=== PATIENT | female | born 1990 | race Caucasian/White ===

== ENCOUNTER → 2019-04-23 16:05 | Outpatient (CLI) | payer OTHER, SELFPAY ==
[2019-04-23 16:52] LABS: Add Manual Diff / Slide Review NO; Basophils Absolute Auto 0 /uL (0-100); Basophils Percent Auto 0.4 % (0-2); Eosinophils Absolute Auto 100 /uL (0-450); Eosinophils Percent Auto 1.6 % (2-4); Hematocrit 42.3 % (36-46); Hemoglobin 14.5 g/dL (12.0-16.0); Lymphocytes Absolute Auto 1600 /uL (1100-4500); Lymphocytes Percent Auto 18.7 % (25-40); Mean Corpuscular HGB Conc 34.3 % (30-36); Mean Corpuscular Hemoglobin 32.3 PG (26-34); Mean Corpuscular Volume 94.4 fL (80-100); Monocytes Absolute Auto 900 /uL (0-900); Monocytes Percent Auto 10.4 % (3-14); Neutrophils Absolute Auto 6100 /uL (1500-7000); Neutrophils Percent Auto 68.9 % (50-75); Platelet Count 284 X10^3/uL (150-400); Red Blood Cell Count 4.48 X10^6/uL (4.0-5.2); Red Cell Distribution Width 12.6 % (11.6-14.8); White Blood Cell Count 8.8 X10^3/uL (4.5-11.0)
[2019-04-23 17:39] LABS: Hepatitis B Surface Antigen NEGATIVE s/c (NEGATIVE); Rubella Antibody IgG 46.8 IU/mL (>15)
[2019-04-23 17:54] LABS: HIV 1 & 2 Ab/Ag 4th Gen Combo NEGATIVE (NEGATIVE); Hep C Virus Ab w/Reflex Quant NEGATIVE s/c (NEGATIVE)
[2019-04-23 17:59] LABS: Appearance Urine UA CLEAR; Bilirubin Urine UA NEGATIVE (NEGATIVE); Color Urine UA YELLOW; Glucose Urine UA NEGATIVE (Negative); Ketones Urine UA TRACE (NEGATIVE); Leukocyte Esterase Urine UA NEGATIVE (NEGATIVE); Nitrite Urine UA NEGATIVE (Negative); Occult Blood Urine UA NEGATIVE (Negative); Protein Urine UA NEGATIVE (Negative); Specific Gravity Urine UA 1.025 (1.000-1.035); Urobilinogen Urine UA 0.2 E.U./dL (0.2)
[2019-04-23 18:01] LABS: pH Urine UA 5.5 (4.5-8.0)
[2019-04-23 19:12] LABS: Urine N gonorrhoeae NOT DETECTED
[2019-04-23 19:22] LABS: Urine Chlamydia NOT DETECTED
[2019-04-27 16:03] LABS: RPR Screen NONREACTIVE
[2019-04-27 17:44] LABS: Varicella IgG Antibody < 135.00 Index (< 135.00)
== END ==
PROVIDERS: Visit Provider Specialist
DX: Z34.81 Encounter for supervision of other normal pregnancy, first trimester (principal)
CPT/HCPCS: 36415; 80055; 81003; 86787; 86803; 86850; 86900; 86901; 87086; 87389; 87491; 87591

== ENCOUNTER → 2019-06-18 16:46 | Outpatient (CLI) | payer OTHER, SELFPAY ==
[2019-06-30 10:42] LABS: AFP, Serum 186.8 ng/mL; Cigarette Smoker NO; Donated Egg N; Donor Egg Age NOT GIVEN; Estriol, Free 1.36 ng/mL; Inhibin A, Dimeric 153 pg/mL; Maternal Ethnicity Caucasian; Maternal Weight 166 lbs; Number of Fetuses 1; Previous Pregnancy Down Syndro N; hCG, MoM 0.56
== END ==
PROVIDERS: PCP Physician Assistant; Visit Provider Specialist
DX: Z34.82 Encounter for supervision of other normal pregnancy, second trimester (principal); Z3A.17 17 weeks gestation of pregnancy
CPT/HCPCS: 36415; 82105; 82677; 84702; 86336

== ENCOUNTER 2019-08-05 11:52 | Observation (INO) | payer OTHER, SELFPAY ==
--- NOTE | 2019-08-05 13:04 | DI.US.S_ITS ---
PROCEDURE: US OB LIMITED INDICATIONS: CERVICAL LENGTH OUTSIDE/PRIOR DATING DATA: Last menstrual period (LMP): 02/19/19. LMP-based estimated date of delivery (REGIS): 11/26/19. First dating scan (date and location): 04/23/19. Estimated date of delivery (REGIS) from first dating scan: 11/24/19. TECHNIQUE: Real-time scanning was performed of the fetus, with image documentation. Endovaginal scanning: For better visualization of cervical length COMPARISON: [facility], US, US OB <= 14 WEEKS FETUS, 05/21/2019, 11:18. FINDINGS: A single living intrauterine gestation is present. Presentation: Transverse with head to maternal right. Placenta: Placental position is posterior, without previa. Amniotic fluid index: 10.5 cm, normal range is 5-24 cm. heart rate: 137 beats per minute. Maternal cervical canal: The cervix is closed. Endovaginal imaging of the cervix demonstrates the average cervical length to be 2.6 cm long. With external pressure, cervical length can be decreased 2.2 cm. No evidence of funneling of the cervix. Estimated gestational age from initial scan: 24 weeks, one day IMPRESSION: 1. Single living intrauterine in transverse presentation. 2. Cervical length at the level and is normal at rest. External pressure can cause shortening of the cervix. 3. No evidence of cervical funneling or endocervical fluid. 4. Normal amniotic fluid volume. Dictated by: Iveth Ybarra M.D. on 08/05/2019 at 13:59 Approved by: Iveth Ybarra M.D. on 08/05/2019 at 14:13
[2019-08-05] MEDS: NIFEdipine 30 MG TAB ER PO (14:15)
== END 2019-08-05 14:25 | disposition home or self-care (01) ==
PROVIDERS: Admitting Provider Specialist; PCP Physician Assistant; Visit Provider Specialist
DX: O47.02 False labor before 37 completed weeks of gestation, second trimester (principal); O36.5920 Maternal care for other known or suspected poor fetal growth, second trimester, not applicable or unspecified; Z3A.23 23 weeks gestation of pregnancy
CPT/HCPCS: 59025; 76815; 76817; G0378; G0379

== ENCOUNTER → 2019-08-09 11:14 | Outpatient (CLI) | payer OTHER, SELFPAY ==
[2019-08-09 13:40] LABS: Hematocrit 42.3 % (36-46); Hemoglobin 14.5 g/dL (12.0-16.0)
[2019-08-09 14:13] LABS: GTT (PREG) 1 Hour PP 50gm Dose 132 mg/dL (76-139)
== END ==
PROVIDERS: PCP Physician Assistant; Visit Provider Specialist
DX: Z34.82 Encounter for supervision of other normal pregnancy, second trimester (principal)
CPT/HCPCS: 36415; 82950; 85014; 85018

== ENCOUNTER 2019-09-08 14:24 | Outpatient (CLI) | payer OTHER, SELFPAY ==
--- NOTE | 2019-09-08 17:29 | PM.OBTRLD ---
Visit Information Visit Information Date of evaluation: 09/08/19 Primary OB Provider: Claudine Purdy Reason for Evaluation: Yes non-stress test non-stress test reason: other (IUGR) [facility] Medical History (Updated 09/08/19 @ 14:25 by Claudine Purdy MD) Elevated liver function tests (Acute) Surgical History (Updated 04/20/19 @ 21:45 by Linda Vallejo) H/O LEEP (Resolved ~2019) Family History (Updated 04/20/19 @ 21:48 by Linda Vallejo) Father Mental health problem Mother Mental health problem Brother Mental health problem Brother Mental health problem Sister Cancer Grandmother Cancer Grandmother Cancer Social History Smoking Status: Never smoker Evaluation Evaluation Baseline heart rate: 140 Variability: Moderate (11-25) monitor accelerations: Present monitor decelerations: Absent Contraction Frequency (minutes): 0 Diagnosis, Plan/Disposition Final Diagnosis (1) Symmetric IUGR complicating , antepartum: Current Visit: No Status: Acute Plan/Disposition Plan: Discussed the patient with the [facility] perinatology. She is going to go down to be evaluated at the [facility] labor and delivery tonight for follow-up ultrasound and umbilical artery check. OB Disposition: other (Patient does not need to be transferred by ambulance but will go down to [facility])
== END 2019-09-08 16:20 | disposition home or self-care (01) ==
LOC: OB 09-09 09:49
PROVIDERS: PCP Physician Assistant; Visit Provider Specialist
DX: O36.5930 Maternal care for other known or suspected poor fetal growth, third trimester, not applicable or unspecified (principal); Z3A.29 29 weeks gestation of pregnancy
CPT/HCPCS: 59025; 59050; G0378; G0379

== ENCOUNTER 2020-02-16 15:20 | Day surgery (SDC) | payer OTHER, MEDICAID, SELFPAY ==
[2020-02-16] VITALS (10 sets, daily range): BP systolic 108–131; BP diastolic 75–90; PULSE 63–104; RESP 14–27; TEMP 36.5–36.9; O2SAT 98–100
--- NOTE | 2020-02-16 | PATH_ITS ---
[facility] Accession Number: [id number] . 01 Material submitted: . gallbladder - GALLBLADDER AND CONTENTS . 01 Clinical history: . STOMACH PAIN INFECTION OF GALLBLADDER PER DR Jorge 02 Diagnosis: Gallbladder and Contents, Cholecystectomy: Chronic cholecystitis with cholelithiasis. Negative for dysplasia and malignancy. MRV 02/21/2020 1147 Local . 02 Electronically signed: . Rachana Aragon MD, Pathologist NPI- [id number] . 01 Gross description: . Specimen A is received in formalin, labeled with patient identification and gallbladder and contents. It consists of an intact gallbladder measuring 7.2 cm in length and up to 2.0 cm in diameter. The staple at the cystic duct margin is removed and the tissue underneath is inked blue. The cystic duct is 0.3 cm in diameter. The serosa is pink-mariscal and dull with white exudate. The hepatic surface is yellow-mariscal shaggy and cauterized. Opening the specimen reveals brown to yellow-mariscal and velvety mucosa with yellow excrescence. Multiple yellow-mariscal and irregular shaped calculi are present measuring 3.2 x 2.7 x 0.4 cm in aggregate. Multiple small fragments of calculi are present at the neck. The wall thickness is 0.2 cm. No lymph node candidate is present. Flatbed Driver sections are submitted in two cassettes. . Summary of sections: A1 - cystic duct margin, shave, one piece. A2 - traveling sales representative sections of gallbladder, three pieces. ([id number]) /MRV 02/18/2020 1042 Local . 02 Pathologist provided ICD-10: K80.60 . 02 CPT . 570052 Performed at: [address] [facility], [facility] [place] [id number] MD Chato Madera MD Phone: [phone] Performed at: 02 [facility] [address] [place] [id number] MD Rachana Aragon MD Phone: [phone]
--- NOTE | 2020-02-16 15:29 | ED.ABDPAIN ---
HPI - Abdominal Pain General Chief Complaint: Abdominal Pain Stated Complaint: STOMACH PAIN INFECTION OF GALLBLADDER PER DR Time Seen by Provider: 02/16/20 15:29 Source: patient Mode of arrival: Ambulatory Limitations: no limitations History of Present Illness HPI narrative: 29-year-old female nonsmoker with noncontributory medical history presents with the chief complaint of severe epigastric pain and radiation to her back which is notably worse after she eats. She has had what her doctor thinks is gallbladder problems off and on since she delivered her son in August. The patient was seen by her primary care provider this morning and had a bedside ultrasound suggesting a thickened gallbladder wall and the patient was sent here for further evaluation. She has had nausea and vomiting and, as stated above, her symptoms are significantly worse after eating. She denies any fever or chills nor jaundice. She is actively breast-feeding. She denies any change in bowel habits or urinary complications such as dysuria, frequency or urgency. Last oral intake was about 1330 today MD complaint: abdominal pain Onset (ago): hour(s) Pain Consistency: constant Location: epigastric Severity: severe Quality: stabbing and aching Radiation: back Migration to: no migration Relieving factors: nothing Exacerbating factors: eating Associated symptoms: nausea and vomiting Related Data Home Medications Medication Instructions Recorded Confirmed prenat.vits,rosalina,[id number] 1 tab PO DAILY 04/14/19 10/22/19 Allergies Allergy/AdvReac Type Severity Reaction Status Date / Time No Known Drug Allergies Allergy Verified 10/22/19 14:17 Review of Systems Constitutional Constitutional: Denies chills, Denies fatigue, Denies fever(s), Denies frequent falls, Denies lethargy and Denies weakness Eyes Eyes: Denies change in vision, Denies eye discharge, Denies irritation and Denies loss of vision ENT Ears, Nose, Mouth, and Throat: Denies change in voice, Denies dizziness, Denies neck pain, Denies sore throat and Denies throat swelling Cardiovascular Cardiovascular: Denies chest pain, Denies irregular heart rhythm, Denies lightheadedness, Denies palpitations, Denies dyspnea, Denies dyspnea on exertion and Denies orthopnea Respiratory Respiratory: Denies cough, Denies dyspnea, Denies dyspnea on exertion and Denies wheezing Gastrointestinal Gastrointestinal: Reports abdominal pain, Denies change in bowel habits, Denies diarrhea, Reports nausea and Reports vomiting Musculoskeletal Musculoskeletal: Denies neck pain and Denies numbness Integumentary/Breasts Skin/Breast: Denies pruritus, Denies erythema, Denies rash and Denies wounds Neurologic Neurologic: Denies behavioral changes, Denies confusion, Denies dizziness, Denies frequent falls, Denies loss of vision, Denies numbness and Denies weakness Psychiatric Psychiatric: Denies anxiety, Denies behavioral changes, Denies confusion, Denies depression, Denies homicidal ideation and Denies suicidal ideation Endocrine Endocrine: Denies fatigue, Denies flushing and Denies palpitations Hematologic/Lymphatic Hematologic/Lymphatic: Denies easy bruising Allergic/Immunologic Allergic/Immunologic: Denies urticaria, Denies throat swelling and Denies wheezing Patient History Medical History Elevated liver function tests (Acute) Surgical History H/O section (Acute ~08/2019) H/O LEEP (Resolved ~2018) Family History Father Mental health problem Mother Mental health problem Brother Mental health problem Brother Mental health problem Sister Cancer Grandmother Cancer Grandmother Cancer Social History Smoking Status: Never smoker Smoking Status: Never smoker Exam Narrative Exam Narrative: GENERAL: [29] year old patient appears stated age. Well-nourished, well-developed patient, in mild distress. HEAD: Atraumatic. Normocephalic. EYES: Pupils equal round and reactive. Extraocular motions intact. No scleral icterus. No injection or drainage. ENT: Nose without bleeding, purulent drainage. Throat without erythema, tonsillar hypertrophy or exudate. Airway patent. NECK: Trachea midline. Non tender CARDIOVASCULAR: Regular rate and rhythm without murmurs, gallops, or rubs. RESPIRATORY: Clear to auscultation. Breath sounds equal bilaterally. No wheezes, rales, or rhonchi. GASTROINTESTINAL: Abdomen soft, tender in epigastrum, nondistended. EXTREMITIES: No edema or joint tenderness. BACK: Nontender without deformity or crepitance. No flank tenderness. NEURO: AOx3. SKIN: No rash or erythema of visible areas Initial Vital Signs Initial Vital Signs: Vital Signs Temperature 98.5 F 02/16/20 15:24 Pulse Rate 68 02/16/20 15:24 Respiratory Rate 14 02/16/20 15:24 Blood Pressure 131/85 02/16/20 15:24 Pulse Oximetry 98 02/16/20 15:24 Course Orders Ordered: ED Orders 02/16/20 15:37 US abdomen limited Stat 02/16/20 15:43 Complete Blood Count AUTO DIFF Stat Comprehensive Metabolic Panel Stat Lipase Stat Sodium Chloride (Normal Saline 0.9%) 1,000 mls @ 150 mls/hr IV CONT HARRIET Last Admin: 02/16/20 16:12 Dose: 150 mls/hr Documented by: EMMA Discontinued Medications Piperacillin/Tazobactam/Dextrose (Zosyn) 3.375 gm in 50 mls @ 100 mls/hr IV NOW ONE Stop: 02/16/20 16:53 Last Infusion: 02/16/20 17:21 Dose: 0 mls/hr Documented by: Admin: 02/16/20 16:50 Dose: 100 mls/hr Documented by: SARAH Consultations Consultation #1: call to surgery given convincing story and US findings. He requests admission, ABX, COVID and will see her at the bedside. Vital Signs Vital signs: Vital Signs - 8 hr 02/16/20 15:24 Temperature 98.5 F Pulse Rate 68 Respiratory Rate 14 Blood Pressure 131/85 Pulse Oximetry 98 MDM - Abdominal Pain Lab Data Result diagrams: 02/16/20 15:43 02/16/20 15:43 Labs: Lab Results 02/16/20 02/16/20 Range/Units 15:43 15:43 WBC 7.4 (4.5-11.0) X10^3/uL RBC 4.40 (4.0-5.2) X10^6/uL Hgb 13.7 (12.0-16.0) g/dL Hct 40.8 (36-46) % MCV 92.7 (80-100) fL MCH 31.0 (26-34) PG MCHC 33.5 (30-36) % RDW 13.0 (11.6-14.8) % Plt Count 254 (150-400) X10^3/uL Neut % (Auto) 56.5 (50-75) % Lymph % (Auto) 29.8 (25-40) % Star[place] % (Auto) 9.2 (3-14) % Eos % (Auto) 3.9 (2-4) % Baso % (Auto) 0.6 (0-2) % Neut # (Auto) 4200 (8918-3772) /uL Lymph # (Auto) 2200 (0114-3013) /uL Starke # (Auto) 700 (0-900) /uL Eos # (Auto) 300 (0-450) /uL Baso # (Auto) 0 (0-100) /uL Sodium 138 (137-145) mmol/L Potassium 4.0 (3.4-5.1) mmol/L Chloride 106 (98-107) mmol/L Carbon Dioxide 24 (22-32) mmol/L BUN 13 (7-17) mg/dL Creatinine 0.61 (0.52-1.04) mg/dL Estimated GFR > 60.0 (>60) mL/min BUN/Creatinine Ratio 21.3 (6-22) Glucose 92 (70-100) mg/dL Calcium 9.5 (8.4-10.2) mg/dL Total Bilirubin 0.3 (0.2-1.3) mg/dL AST 32 (14-36) IU/L ALT 45 H (<35) IU/L Alkaline Phosphatase 85 (38-126) U/L Total Protein 7.5 (6.3-8.2) g/dL Albumin 4.5 (3.5-5.0) g/dL Globulin 3.0 (1.7-4.1) g/dL Albumin/Globulin Ratio 1.5 (1.0-2.8) Lipase 115 (23-300) U/L Point of care testing: Urine Dip Bedside Urine Glucose Negative Bedside Urine Bilirubin - Negative Bedside Urine Ketone +/- 5 Urine Specific [place] 1.025 Bedside Urine Occult Blood - Negative Bedside Urine pH 6.0 Bedside Urine Protein - Negative Bedside Urine Urobilinogen - Negative Bedside Urine Nitrite - Negative Bedside Urine Leukocytes - Negative Esterase Imaging Data US - abdomen: Radiologist's Impression: [address] [id number] Ultrasound Report Signed Patient: Toshia Pardo GMR#: [id number] : 1990Acct:[id number] Age/Sex: 29 / FDate of Service: 02/16/20 Loc: ED Accession Number: [id number] Procedure: US abdomen limited Ordering Provider: Nj Arzola D.O. PROCEDURE: US ABDOMEN LIMITED INDICATIONS: severe epigastric pain TECHNIQUE: Real-time scanning was performed of the abdominal and retroperitoneal organs, with image documentation. COMPARISON: None. FINDINGS: Liver: Normal hepatic parenchymal echogenicity, echotexture, and contour. Gallbladder: The gallbladder is slightly contracted which greatly limits evaluation. Wall thickness is at the upper limits of normal. Sonographic Ware's sign is reported as negative. There are numerous shadowing echogenic gallstones measuring up to 7 mm (at least 10 stones are identified). Biliary ducts: No intrapelvic or extrahepatic biliary ductal dilatation. Pancreas: Visualized portions of the pancreas are sonographically normal. No pancreatic ductal dilatation. IMPRESSION: Tightly contracted gallbladder which greatly limits evaluation. Cholelithiasis with no definite sonographic findings of cholecystitis. Dictated by: Feliciano Dalal M.D. on 02/16/2020 at 16:23 Approved by: Feliciano Dalal M.D. on 02/16/2020 at 16:26 Discharge Plan Departure Patient Disposition: Admitted as Observation Clinical Impression: Cholelithiasis Qualifiers: Cholelithiasis location: gallbladder Cholecystitis presence: without cholecystitis Biliary obstruction: without biliary obstruction Qualified Code(s): K80.20 - Calculus of gallbladder without cholecystitis without obstruction Referrals: Mary Jo Hannon PA-C [Primary Care Provider] - Admit Date/Time: 02/16/20 17:14 Admit Provider: Mark Ashby
--- NOTE | 2020-02-16 15:37 | DI.US.S_ITS ---
PROCEDURE: US ABDOMEN LIMITED INDICATIONS: severe epigastric pain TECHNIQUE: Real-time scanning was performed of the abdominal and retroperitoneal organs, with image documentation. COMPARISON: None. FINDINGS: Liver: Normal hepatic parenchymal echogenicity, echotexture, and contour. Gallbladder: The gallbladder is slightly contracted which greatly limits evaluation. Wall thickness is at the upper limits of normal. Sonographic Ware's sign is reported as negative. There are numerous shadowing echogenic gallstones measuring up to 7 mm (at least 10 stones are identified). Biliary ducts: No intrapelvic or extrahepatic biliary ductal dilatation. Pancreas: Visualized portions of the pancreas are sonographically normal. No pancreatic ductal dilatation. IMPRESSION: Tightly contracted gallbladder which greatly limits evaluation. Cholelithiasis with no definite sonographic findings of cholecystitis. Dictated by: Feliciano Dalal M.D. on 02/16/2020 at 16:23 Approved by: Feliciano Dalal M.D. on 02/16/2020 at 16:26
[2020-02-16 15:50] LABS: Add Manual Diff / Slide Review NO; Basophils Absolute Auto 0 /uL (0-100); Basophils Percent Auto 0.6 % (0-2); Eosinophils Absolute Auto 300 /uL (0-450); Eosinophils Percent Auto 3.9 % (2-4); Hematocrit 40.8 % (36-46); Hemoglobin 13.7 g/dL (12.0-16.0); Lymphocytes Absolute Auto 2200 /uL (1100-4500); Lymphocytes Percent Auto 29.8 % (25-40); Mean Corpuscular HGB Conc 33.5 % (30-36); Mean Corpuscular Volume 92.7 fL (80-100); Monocytes Absolute Auto 700 /uL (0-900); Monocytes Percent Auto 9.2 % (3-14); Neutrophils Absolute Auto 4200 /uL (1500-7000); Neutrophils Percent Auto 56.5 % (50-75); Platelet Count 254 X10^3/uL (150-400); White Blood Cell Count 7.4 X10^3/uL (4.5-11.0)
[2020-02-16 16:05] LABS: Alanine Aminotransferase 45 IU/L (<35); Albumin 4.5 g/dL (3.5-5.0); Albumin Globulin Ratio 1.5 (1.0-2.8); Alkaline Phosphatase 85 U/L (38-126); Aspartate Aminotransferase 32 IU/L (14-36); BUN Creatinine Ratio 21.3 (6-22); Bilirubin Total 0.3 mg/dL (0.2-1.3); Blood Urea Nitrogen 13 mg/dL (7-17); Calcium 9.5 mg/dL (8.4-10.2); Carbon Dioxide 24 mmol/L (22-32); Chloride 106 mmol/L (98-107); Estimated Glomerular Filt Rate > 60.0 mL/min (>60); Glucose 92 mg/dL (70-100); HEMOLYSIS 19 (0-50); Lipase 115 U/L (23-300); Sodium 138 mmol/L (137-145); Total Protein 7.5 g/dL (6.3-8.2)
[2020-02-16] MEDS: SODIUM CHLORIDE 0.9% 1,000 ML 150 ML IV (16:12)
--- NOTE | 2020-02-16 16:44 | P.HP_ITS ---
History of Present Illness History of Present Illness Date Patient Seen: 02/16/20 Time Patient Seen: 21:21 Chief complaint: STOMACH PAIN INFECTION OF GALLBLADDER PER Narrative: 29-year-old female the history of biliary colic presents with acute onset of right upper quadrant pain. Pain is constant in nature unlike previous similar episodes. Pain associated with nausea no vomiting bloating. In the emergency room she underwent a CT is ultrasound the right upper quadrant which demonstrates cholelithiasis as well as mild wall thickening and positive Ware sign. Her laboratory studies including LFTs were normal. Patient History Medical History Elevated liver function tests (Acute) Surgical History H/O section (Acute ~08/2019) H/O LEEP (Resolved ~2018) Family & Social History Family History Father Mental health problem Mother Mental health problem Brother Mental health problem Brother Mental health problem Sister Cancer Grandmother Cancer Grandmother Cancer Tobacco & Substance use: Smoking Status Never smoker Meds Home Medications and Allergies Home Medications Medication Instructions Recorded Confirmed Type prenat.vits,rosalina,[id number] 1 tab PO DAILY 04/14/19 10/22/19 History Allergies Allergy/AdvReac Type Severity Reaction Status Date / Time No Known Drug Allergies Allergy Verified 10/22/19 14:17 Review of Systems Review of Systems Narrative: A 10 point review of systems is negative except as noted in the HPI Exam Vital Signs (past 8 hours): - 02/16/20 15:24 Temperature 98.5 F Pulse Rate 68 Respiratory Rate 14 Blood Pressure 131/85 Pulse Oximetry 98 Oxygen Delivery Method Room Air Narrative Exam Narrative: General-no acute distress, well nourished HEENT-moist mucous membranes, no scleral icterus Neck-supple, no lymphadenopathy Chest- non labored respirations, clear to auscultation bilaterally Cardiac-regular rate no peripheral edema Abdomen-positive Ware's sign Extremities-warm, well perfused Neurological-alert and oriented, no focal deficits Objective Labs Result Diagrams: 02/16/20 15:43 02/16/20 15:43 Labs: Laboratory Results - last 24 hr 02/16/20 02/16/20 15:43 15:43 WBC 7.4 RBC 4.40 Hgb 13.7 Hct 40.8 MCV 92.7 MCH 31.0 MCHC 33.5 RDW 13.0 Plt Count 254 Neut % (Auto) 56.5 Lymph % (Auto) 29.8 [place] % (Auto) 9.2 Eos % (Auto) 3.9 Baso % (Auto) 0.6 Neut # (Auto) 4200 Lymph # (Auto) 2200 [place] # (Auto) 700 Eos # (Auto) 300 Baso # (Auto) 0 Sodium 138 Potassium 4.0 Chloride 106 Carbon Dioxide 24 BUN 13 Creatinine 0.61 Estimated GFR > 60.0 BUN/Creatinine Ratio 21.3 Glucose 92 Calcium 9.5 Total Bilirubin 0.3 AST 32 ALT 45 H Alkaline Phosphatase 85 Total Protein 7.5 Albumin 4.5 Globulin 3.0 Albumin/Globulin Ratio 1.5 Lipase 115 Assessment & Plan Assessment and plan (1) Acute cholecystitis: Status: Acute Assessment & Plan narrative: 29-year-old female with acute cholecystitis. She has positive Ware sign on exam reviewed her ultrasound which demonstrates cholelithiasis and acute cholecystitis. Laboratory studies are normal including liver function tests. Recommend that we proceed to the operating room for laparoscopic cholecystectomy possible open. Discussed the technical nature of the procedure the operative risks of bleeding infection bile duct injury damage to surrounding structures conversion to open. Questions have been answered she is in agreement with this plan.
[2020-02-16] MEDS: PIPERACILLIN-TAZO 3.375 GM/50 ML FROZ.PIGGY IV (16:50)
[2020-02-16 17:34] LABS: COVID19 -Nasal RAPID Negative (Negative)
[2020-02-16] MEDS: LACTATED RINGERS 1,000 ML 42 ML IV (19:30)
[2020-02-16] MEDS: ACETAMINOPHEN IV 1,000 MG/100 ML VIAL 400 MG IV (20:10)
--- NOTE | 2020-02-16 20:14 | SUR.OPER ---
Supine on padded OR bed, head on pillow, right arm secured on padded arm boards at <90 degrees abduction, left arm is tucked and wrapped in gel, legs uncrossed, safety belt at thigh, tape over blanket over lower legs, foot board.
[2020-02-16] MEDS: BUPIVACAINE 0.25% (PF) VIAL 30 ML INJ (20:20)
[2020-02-16] MEDS: HYDROMORPHONE 2 MG INJ IV (21:18)
[2020-02-16] MEDS: ONDANSETRON 4 MG/2 ML INJ IV ×2 (21:19→21:36)
--- NOTE | 2020-02-16 21:24 | P.OP_ITS ---
Operative Date/Time/Diagnoses Date of procedure: 02/16/20 Time of procedure: 21:24 Pre-op diagnosis: Acute cholecystitis Post-op diagnosis: same Procedure & Clinicians Procedure: Laparoscopic cholecystectomy Same procedure as scheduled: Yes Indications: 29-year-old female history of biliary colic presents with acute cholecystitis. Surgeon: Mark Ashby Anesthesia Type: General Operative Notes Findings: Acute on chronic cholecystitis. Critical view safety Specimen(s): other (Gallbladder) Estimated Blood Loss (mL): 20 Procedure in detail: The patient was placed supine on the table and bilateral lower extremity compression devices were applied. Anesthesia was induced they were intubated with an endotracheal tube and received 2g of Ancef. A time-out was performed. They were prepped and draped in sterile fashion. An infraumbilical incision was made, the umbilical stalk was elevated and the fascia was sharply incised entering the abdomen atraumatically. A blunt tip 12mm balloon trocar was then inserted, pneumoperitoneum was established and inspection of the abdomen demonstrated no evidence of injury. They were placed head up and right side up and then a 11 mm port was placed high in the epigastrium and two 5mm in the right upper quadrant. The gallbladder appeared acutely inflamed there were also some omental adhesions to the gallbladder consistent with acute on chronic cholecystitis. The gallbladder was grasped by the fundus and retracted over the liver and retracted laterally by the infundibulum. Using electrocautery the lateral plane between the gallbladder and the liver was opened towards the fundus. The gallbladder was then retracted laterally and the medial plane was developed in the same manner. With the gallbladder mobilized the bottom of the cystic plate was visualized. The hepatocystic triangle was meticulosly skeletonized using hook electrocautery of all fat and fibrous tissue from both the front and the back. Only two structures were then clearly seen entering the gallbladder the cystic duct and the cystic artery. With the critical view of safety fully established the c ystic duct was clipped twice proximally and once distally using the 10 mm clip applied under direct visualization and then sharply divided. The cystic artery was divided in the same fashion. The gallbladder was removed from the liver bed using electro cautery. The liver bed was then inspected for hemostasis and this was achieved. The abdomen was irrigated with sterile saline and inspection was made that showed the clips in good position. The specimen was removed using Endo-Catch. The abdomen was desufflated. The umbilical fascia was closed with 0 Vicryl in a [id number] fashion under direct visualization. Skin incisions were irrigated and closed with 4-0 Monocryl. 30 ml of 0.25% bupivacaine was infiltrated into the subcutaneous tissue of the incisions. The wounds were sealed with Dermabond. Patient emerged from anesthesia was extubated and transferred to recovery in stable condition. The sponge and instrument count at the end of the operation was correct. Complications: none Post-operative Condition: stable Disposition: same day surgery
[2020-02-16] MEDS: OXYCODONE IR 5 MG TABLET PO (21:53)
== END 2020-02-16 22:14 | disposition home or self-care (01) ==
LOC: ED 16:23 → OR 19:27
PROVIDERS: Emergency Provider Emergency Medicine; PCP Physician Assistant; Referring Provider Emergency Medicine; Visit Provider Surgery
PROC: 0FT44ZZ Resection of Gallbladder, Percutaneous Endoscopic Approach (ICD-10-PCS; CPT 47562; principal; 2020-02-16 19:00)
DX: K80.12 Calculus of gallbladder with acute and chronic cholecystitis without obstruction (principal); Z11.59 Encounter for screening for other viral diseases
CPT/HCPCS: 47562; 36415; 76705; 80053; 81003; 83690; 85025; 87635; 96365; 96375; 99218; 99284; J0131; J1100; J1170; J1885; J2250; J2405; J2543; J2704; J3010

== ENCOUNTER → 2021-02-16 08:36 | Outpatient (CLI) | payer OTHER, MEDICAID, SELFPAY ==
[2021-02-16 09:38] LABS: Add Manual Diff / Slide Review NO; Basophils Absolute Auto 0 /uL (0-100); Basophils Percent Auto 0.5 % (0-2); Eosinophils Absolute Auto 300 /uL (0-450); Hematocrit 42.5 % (36-46); Hemoglobin 14.6 g/dL (12.0-16.0); Lymphocytes Absolute Auto 1800 /uL (1100-4500); Lymphocytes Percent Auto 27.8 % (25-40); Mean Corpuscular HGB Conc 34.3 % (30-36); Mean Corpuscular Hemoglobin 32.1 PG (26-34); Mean Corpuscular Volume 93.6 fL (80-100); Monocytes Absolute Auto 600 /uL (0-900); Monocytes Percent Auto 9.9 % (3-14); Neutrophils Absolute Auto 3700 /uL (1500-7000); Neutrophils Percent Auto 57.8 % (50-75); Platelet Count 259 X10^3/uL (150-400); Red Blood Cell Count 4.54 X10^6/uL (4.0-5.2); Red Cell Distribution Width 12.3 % (11.6-14.8); White Blood Cell Count 6.4 X10^3/uL (4.5-11.0)
[2021-02-16 10:07] LABS: Alanine Aminotransferase 58 IU/L (<35); Albumin 4.5 g/dL (3.5-5.0); Albumin Globulin Ratio 1.6 (1.0-2.8); Alkaline Phosphatase 76 U/L (38-126); Aspartate Aminotransferase 36 IU/L (14-36); BUN Creatinine Ratio 19.4 (6-22); Bilirubin Total 0.4 mg/dL (0.2-1.3); Blood Urea Nitrogen 12 mg/dL (7-17); Calcium 9.5 mg/dL (8.4-10.2); Carbon Dioxide 27 mmol/L (22-32); Chloride 106 mmol/L (98-107); Estimated Glomerular Filt Rate > 60.0 mL/min (>60); Globulin 2.9 g/dL (1.7-4.1); Glucose 91 mg/dL (70-100); HEMOLYSIS < 15 (0-50); Potassium 4.2 mmol/L (3.4-5.1); Sodium 139 mmol/L (137-145); Total Protein 7.4 g/dL (6.3-8.2)
[2021-02-16 12:08] LABS: Free T4, Direct Thyroxine 1.04 ng/dL (0.78-2.19)
[2021-02-16 12:22] LABS: Thyroid Stimulating Hormone 1.49 uIU/mL (0.47-4.68)
== END ==
PROVIDERS: PCP Registered Nurse; Referring Provider Registered Nurse; Visit Provider Registered Nurse
DX: Z00.00 Encounter for general adult medical examination without abnormal findings (principal); F32.9 Major depressive disorder, single episode, unspecified; F41.9 Anxiety disorder, unspecified
CPT/HCPCS: 36415; 80053; 84439; 84443; 85025

== ENCOUNTER → 2021-03-06 08:09 | Outpatient (CLI) | payer OTHER, MEDICAID, SELFPAY ==
--- NOTE | 2021-03-06 08:09 | DI.US.S_ITS ---
PROCEDURE: US ABDOMEN LIMITED INDICATIONS: ELEVATED LIVER ENZYMES TECHNIQUE: Real-time scanning was performed of the abdominal and retroperitoneal organs, with image documentation. COMPARISON: [facility], , US ABDOMEN LIMITED, 02/16/2020, 16:02. FINDINGS: Liver: Liver is normal in size and homogeneous in echotexture. Gallbladder: Status post cholecystectomy Biliary ducts: Intrahepatic bile ducts are non-dilated. Extrahepatic bile duct caliber measures 6.3 mm. Normal is 6-7 mm or less in diameter, or 10 mm or less post-cholecystectomy. Pancreas: Visualized portions of the pancreas are sonographically normal. IMPRESSION: 1. No acute ultrasound abnormality of the right upper quadrant. 2. Status post cholecystectomy. Dictated by: Christopher Neumann M.D. on 03/06/2021 at 16:27 Approved by: Christopher Neumann M.D. on 03/06/2021 at 16:29
== END ==
PROVIDERS: PCP Registered Nurse; Referring Provider Registered Nurse; Visit Provider Registered Nurse
DX: R79.89 Other specified abnormal findings of blood chemistry (principal); Z90.49 Acquired absence of other specified parts of digestive tract
CPT/HCPCS: 76705

== ENCOUNTER → 2022-03-25 09:41 | Outpatient (CLI) | payer OTHER, MEDICAID, SELFPAY ==
[2022-03-25 11:08] LABS: Hematocrit 42.4 % (36-46); Hemoglobin 14.8 g/dL (12.0-16.0); Mean Corpuscular Hemoglobin 32.3 PG (26-34); Mean Corpuscular Volume 92.2 fL (80-100); Platelet Count 259 X10^3/uL (150-400); Red Blood Cell Count 4.59 X10^6/uL (4.0-5.2); Red Cell Distribution Width 12.5 % (11.6-14.8); White Blood Cell Count 6.7 X10^3/uL (4.5-11.0)
[2022-03-25 11:51] LABS: Alanine Aminotransferase 82 IU/L (<35); Albumin 4.7 g/dL (3.5-5.0); Albumin Globulin Ratio 1.4 (1.0-2.8); Alkaline Phosphatase 90 U/L (38-126); Aspartate Aminotransferase 50 IU/L (14-36); BUN Creatinine Ratio 13.5 (6-22); Bilirubin Total 0.8 mg/dL (0.2-1.3); Blood Urea Nitrogen 12 mg/dL (7-17); Calcium 9.4 mg/dL (8.4-10.2); Carbon Dioxide 29 mmol/L (22-32); Chloride 102 mmol/L (98-107); Cholesterol 249 mg/dL (140-199); Estimated Glomerular Filt Rate > 60 mL/min (>60); Globulin 3.4 g/dL (1.7-4.1); Glucose 93 mg/dL (70-100); HDL Cholesterol 59 mg/dL (40-60); HEMOLYSIS < 15 (0-50); LDL Cholesterol Calculated 163 mg/dL (<100); Potassium 3.6 mmol/L (3.4-5.1); Sodium 140 mmol/L (137-145); Total Protein 8.1 g/dL (6.3-8.2); Triglycerides 133 mg/dL (35-150)
[2022-03-25 12:21] LABS: TSH w/ Reflex to FT4 1.34 uIU/mL (0.47-4.68)
[2022-03-27 13:59] LABS: Lamotrigine Lamictal 1.7 ug/mL (2.0-20.0)
== END ==
PROVIDERS: PCP Registered Nurse Diabetes Educator; Referring Provider Registered Nurse Diabetes Educator; Visit Provider Registered Nurse Diabetes Educator
DX: Z00.00 Encounter for general adult medical examination without abnormal findings (principal); F32.9 Major depressive disorder, single episode, unspecified; F41.9 Anxiety disorder, unspecified; R79.89 Other specified abnormal findings of blood chemistry; Z51.81 Encounter for therapeutic drug level monitoring
CPT/HCPCS: 36415; 80053; 80061; 80175; 84443; 85027

== ENCOUNTER → 2022-11-21 10:00 | Outpatient (CLI) | payer OTHER, MEDICAID, SELFPAY ==
--- NOTE | 2022-11-21 10:07 | DI.RAD.S_ITS ---
PROCEDURE: XR THORACIC SPINE 3V INDICATIONS: chronic pain TECHNIQUE: 3 views of the thoracic spine were acquired. COMPARISON: None. FINDINGS: Bones: No fractures or dislocations. No suspicious bony lesions. 12 pairs of ribs are noted, and appear intact where visualized. Soft tissues: No paravertebral stripe thickening. IMPRESSION: Unremarkable radiographic examination of thoracic spine. Dictated by: Jovan Rosado M.D. on 11/21/2022 at 10:40 Approved by: Jovan Rosado M.D. on 11/21/2022 at 11:06
== END ==
PROVIDERS: PCP Registered Nurse Diabetes Educator; Referring Provider Nurse Practitioner Family; Visit Provider Nurse Practitioner Family
DX: M54.9 Dorsalgia, unspecified (principal); G89.29 Other chronic pain
CPT/HCPCS: 72072

== ENCOUNTER → 2024-02-27 14:16 | Outpatient (CLI) | payer OTHER, MEDICAID, SELFPAY | PROVIDERS: PCP Registered Nurse Diabetes Educator; Visit Provider Nurse Practitioner Family | DX: Z71.1 Person with feared health complaint in whom no diagnosis is made (principal) | CPT/HCPCS: 87210 ==